=== PATIENT | male | born 1985 ===

== ENCOUNTER 2021-06-23 01:57 | Emergency (ER) | payer OTHER ==
--- OUTSIDE RECORDS SUMMARY | 2021-06-23 02:01 | XMS REPORT | Continuity of Care Document ---
:1985 Author Organization [facility] t Address [address] [place] [address] Dr. [address]. [address] [place] [address] Care Team Providers Name Role Phone Haylie YBARRA, Geovani Primary Care Physician Geovani Stallings MD Attending Clinician GEOVANI STALLINGS Attending Clinician Unavailable Doctor Unassigned, Name Attending Clinician Unavailable Payers Payer Name Policy Type Policy Number Effective Date Expiration Date Melanie MUSTAFA PPO I [id number] 2017 00:00:00 Problems Condition Condition Condition Status Onset Resolution Last Treating Co mments Source Name Details Category Date Date Treatment Clinician Date No known No known Disease Unive rs active active ity of problems problems [facility] Allergies, Adverse Reactions, Alerts Allergy Allergy Status Severity Reaction(s) Onset Inactive Treating Comm ents Source Name Type Date Date Clinician NO KNOWN Drug Active Univers ALLERGIE Class ity of S [facility] Social History Social Habit Start Date Stop Date Quantity Comments Source Exposure to Not sure [facility] SARS-CoV-2 (event) Medica l Branch Alcohol intake 2020-11-04 2020-11-04 .86 /d [facility] 00:00:00 00:00:00 [facility] Tobacco use and 2019-03-26 2019-03-26 Never used [facility] exposure 00:00:00 00:00:00 [facility] Sex Ass[birth year] At [birth year] [facility] 00:00:00 00:00:00 [facility] Smoking Status Start Date Stop Date Source Never smoker [facility] Medications Ordered Filled Start Stop Current Ordering Indication Dosage Frequency Signature Comments Components Source Medication Medication Date Date Medication? Clinician (SIG) Name Name methylPREDN 2020-06 Yes [id number] Take by Univers ISolone 0-08 mouth ity of (MEDROL, 00:00: SEE-INSTRU Andrew as DEDRA,) 4 mg 00 CTIONS. Medica l tablets follow Branch package directions methylPREDN 2020-06 Yes [id number] Take by Univers ISolone 0-08 mouth ity of (MEDROL, 00:00: SEE-INSTRU Andrew as DEDRA,) 4 mg 00 CTIONS. Medica l tablets follow Branch package directions Vital Signs Vital Name Observation Time Observation Value Comments Source Systolic blood 2021-03-27 20:53:00 128 mm[Hg] Univer sity [facility] Diastolic blood 2021-03-27 20:53:00 81 [facility]Hg[facility] 2021-03-27 20:53:00 61 /min [facility] Body height 2021-03-27 20:53:00 180.3 cm [facility] Body weight 2021-03-27 20:53:00 82.101 kg [facility] BMI 2021-03-27 20:53:00 25.24 kg/m2 [facility] Oxygen saturation 2021-03-27 20:53:00 100 /min [facility] in Arterial blood Medical Br anch by Pulse oximetry Procedures Procedure Date / Time Performing Clinician Source Performed [facility] STATEMENT OF PATIENT 2021-03-27 05:01:00 Doctor Unassigned, [facility] FINANCIAL RESPONSIBILITY [place] Branch Encounters Start End Encounter Admission Attending Care Care Encounter Source Date/Time Date/Time Type Type Clinicians Facility Department ID 2021-03-27 2021-03-27 Office Haylie [facility] [id number] Univers 15:48:58 16:03:58 Visit [facility] [id number] it y of Geovani Messina [id number] Andrew as Samson?Blea [id number] Nh darrell garcia [address] [place] [address] Medical Office Building 2021-03-27 2021-03-27 Outpatient R HAYLIE [facility] [id number] Univers 16:00:00 16:00:00 LETICIA [id number] [facility] 2021-03-27 2021-03-27 [facility] [id number] Univers 16:00:00 16:00:00 LETICIA [facility] 2021-03-27 2021-03-27 Orders Doctor GARRY [id number] Univers 00:00:00 00:00:00 Only Unassigned, MARITZA [id number] ity [facility] [id number] Andrew as [id number] [address] 2020-11-04 2020-11-04 [facility] [id number] [id number] Univers 14:30:00 14:30:00 LETICIA [id number] [facility] 2020-11-04 2020-11-04 Outpatient Adrianna STALLINGS [facility] [id number] Univers 14:30:00 14:30:00 LETICIA [facility] 2020-01-31 2020-01-31 Outpatient Adrianna STALLINGS [facility] [id number] [id number] Univers 14:30:00 14:30:00 LETICIA [id number] [facility] 2020-01-31 2020-01-31 [facility] [id number] Univers 14:30:00 14:30:00 LETICIA [facility] 2020-01-11 2020-01-11 [facility] [id number] [id number] Univers 13:15:00 13:15:00 LETICIA [id number] [facility] Results This patient has no known results.
[2021-06-23 02:53] LABS: Absolute Lymphocytes (CBC) 1.8 K/uL (0.7-4.9); Lymphocytes % 34.8 % (15.3-44.8); MPV 8.5 fL (7.6-11.3); Protime INR 0.93; RBC Red Blood Cell Count 5.31 M/uL (4.33-5.43)
[2021-06-23 03:06] LABS: ALT/SGPT 27 U/L (12-78); AST/SGOT 15 U/L (15-37); Albumin 3.8 g/dL (3.4-5.0); Alkaline Phosphatase 73 U/L (45-117); BUN Blood Urea Nitrogen 15 mg/dL (7-18); Bicarbonate 28 mmol/L (21-32); Bilirubin Direct < 0.1 mg/dL (0-0.2); Bilirubin Total 0.3 mg/dL (0.2-1.0); Glucose Level 108 mg/dL (74-106); Magnesium 2.3 mg/dL (1.8-2.4); NT PRO-BNP 16 pg/mL (<125); Potassium 3.5 mmol/L (3.5-5.1); Protein, Total 7.5 g/dL (6.4-8.2); Sodium Level 139 mmol/L (136-145); Troponin (Emerg Dept Use Only) < 0.02 ng/mL (0.0-0.045)
[2021-06-23 04:46] LABS: Barbiturates NEGATIVE (NEGATIVE); Benzodiazepines NEGATIVE (NEGATIVE); Cocaine NEGATIVE (NEGATIVE); METHAMPHETAM NEGATIVE (NEGATIVE); Methadone NEGATIVE (NEGATIVE); Opiates NEGATIVE (NEGATIVE); Phencyclidine NEGATIVE (NEGATIVE); THC Cannibis NEGATIVE (NEGATIVE)
--- NOTE | 2021-06-23 05:00 | ER ---
Nurse's Notes [facility] Name: Antonio Edwards Age: 35 yrs Sex: Male : 1985 Arrival Date: 06/23/2021 Time: 02:07 Bed Treatment Private MD: Diagnosis: Chest pain. Hypertension Presentation: 06/23 02:09 Chief complaint: Patient states: pt woke up around 0045 with left sided chest pain as6 radiating down left arm. Coronavirus screen: At this time, the client does not indicate any symptoms associated with coronavirus-19. Ebola Screen: No symptoms or risks identified at this time. Initial Sepsis Screen: Does the patient meet any 2 criteria? No. Patient's initial sepsis screen is negative. Does the patient have a suspected source of infection? No. Patient's initial sepsis screen is negative. Risk Assessment: Do you want to hurt yourself or someone else? Patient reports no desire to harm self or others. Onset of symptoms was June 23, 2021. 02:09 Method Of Arrival: Ambulatory as6 02:09 Acuity: AMALIA 3 as6 Historical: - Allergies: 02:13 No Known Allergies; as6 - Home Meds: 02:13 None [Active]; as6 - PMHx: 02:13 None; as6 - PSHx: 02:13 None; as6 - Immunization history:: Client reports having NOT received the Covid vaccine. - Social history:: Smoking status: Patient denies any tobacco usage or history of. Patient uses alcohol, occasionally. Screenin:59 Abuse screen: Denies threats or abuse. Nutritional screening: No deficits noted. al4 Tuberculosis screening: No symptoms or risk factors identified. Fall Risk No fall in past 12 months (0 pts). IV access (20 points). Ambulatory Aid- None/Bed Rest/Nurse Assist (0 pts). Gait- Normal/Bed Rest/Wheelchair (0 pts) Mental Status- Oriented to own ability (0 pts). Total Neil Fall Scale indicates No Risk (0-24 pts). Assessment: 03:50 Reassessment: patient is alert and oriented. patient is resting comfortably at this al4 time. redrawing labs and doing a repeat EKG. 04:57 General: Appears in no apparent distress. comfortable, Behavior is calm, cooperative, al4 appropriate for age. Pain: Complains of pain in chest Pain radiates to left arm Pain began suddenly. Neuro: Level of Consciousness is awake, alert, obeys commands, Oriented to person, place, time. Cardiovascular: Heart tones present Capillary refill < 3 seconds Patient's skin is warm and dry. Respiratory: Airway is patent Respiratory effort is even, unlabored, Respiratory pattern is regular, symmetrical. GI: No signs and/or symptoms were reported involving the gastrointestinal system. : No signs and/or symptoms were reported regarding the genitourinary system. EENT: No signs and/or symptoms were reported regarding the EENT system. Derm: No signs and/or symptoms reported regarding the dermatologic system. Musculoskeletal: No signs and/or symptoms reported regarding the musculoskeletal system. Vital Signs: 02:09 BP 154 / 107; Pulse 75; Resp 18 S; Temp 97.2(TE); Pulse Ox 100% on R/A; Weight 79.38 kg as6 (R); Height 5 ft. 11 in. (180.34 cm) (R); Pain 6/10; 04:49 BP 139 / 85; Pulse 85; Resp 20; Temp 98.1; Pulse Ox 95% on R/A; mw2 02:09 Body Mass Index 24.41 (79.38 kg, 180.34 cm) as6 ED Course: 02:07 Patient arrived in ED. ag3 02:13 Triage completed. as6 02:13 Arm band placed on. as6 02:18 EKG completed in triage. Results shown to MD. as6 02:26 Inserted saline lock: 18 gauge in right antecubital area, using aseptic technique. as6 Blood collected. 02:45 XRAY Chest (1 view) In Process Unspecified. EDMS 03:41 Arnulfo Qiu MD is Attending Physician. pkl 04:08 Aldo Bae is Primary Nurse. al4 04:58 Michael Nava MD is Referral Physician. pkl 04:59 Patient has correct armband on for positive identification. Pulse ox on. NIBP on. Door al4 closed. Lights dimmed. 04:59 Patient maintains SpO2 saturation greater than 95% on room air. al4 05:09 No provider procedures requiring assistance completed. IV discontinued, intact, as6 bleeding controlled, No redness/swelling at site. Pressure dressing applied. Administered Medications: No medications were administered Outcome: 04:59 Discharge ordered by . peg 05:10 Discharged to home ambulatory, with family. as6 05:10 Condition: stable 05:10 Discharge instructions given to patient, Instructed on discharge instructions, follow up and referral plans. medication usage, Demonstrated understanding of instructions, follow-up care, medications, Prescriptions given X 1. 05:11 Patient left the ED. as6 Signatures: Dispatcher [employer] EDMS Arnulfo Qiu MD MD pkl RyanStacyPatelkavitha mw2 Henna Leiva 3 Mary Mtz tw5 Robson Winters, INDER RN as6 Aldo Bae al4 Corrections: (The following items were deleted from the chart) 04:51 04:49 General: Appears in no apparent distress. comfortable, Behavior is calm, tw5 cooperative, appropriate for age, Reports chest discomfort that woke him up this morning around 12am. patient states he got dizzy and started sweating. tw5 04:51 04:49 Neuro: Level of Consciousness is awake, alert, obeys commands, Oriented to tw5 person, place, time, situation, tw5 04:51 04:49 Respiratory: Airway is patent Respiratory effort is even, unlabored, Respiratory tw5 pattern is regular, symmetrical, tw5 04:51 04:49 GI: No signs and/or symptoms were reported involving the gastrointestinal system. tw5 tw5 04:51 04:49 : No signs and/or symptoms were reported regarding the genitourinary system. tw5tw5 04:51 04:49 Derm: No signs and/or symptoms reported regarding the dermatologic system. tw5 tw5 04:51 04:49 EENT: No signs and/or symptoms were reported regarding the EENT system. tw5 tw5 04:51 04:49 Musculoskeletal: No signs and/or symptoms reported regarding the musculoskeletal tw5 system. tw5 04:55 04:53 General: patient is alert and oriented. patient is resting comfortably at this al4 time. mother at bedside. . al4
--- NOTE | 2021-06-23 05:00 | EDPHYS ---
Physician Documentation [facility] Name: Antonio Edwards Age: 35 yrs Sex: Male : 1985 Arrival Date: 06/23/2021 Time: 02:07 Bed Treatment Private MD: ED Physician Arnulfo Qiu HPI: 06/23 04:29 This 35 yrs old Male presents to ER via Ambulatory with complaints of Chest Pain, Arm pkl Pain. 04:29 The patient or guardian reports chest pain that is located primarily in the substernal pkl area. The pain radiates to the left arm. Associated signs and symptoms: The patient has no apparent associated signs or symptoms. The chest pain is described as a pressure. The patient has experienced similar episodes in the past, a few times. Historical: - Allergies: 02:13 No Known Allergies; as6 - Home Meds: 02:13 None [Active]; as6 - PMHx: 02:13 None; as6 - PSHx: 02:13 None; as6 - Immunization history:: Client reports having NOT received the Covid vaccine. - Social history:: Smoking status: Patient denies any tobacco usage or history of. Patient uses alcohol, occasionally. ROS: 04:29 Eyes: Negative for injury, pain, redness, and discharge, ENT: Negative for injury, pkl pain, and discharge, Neck: Negative for injury, pain, and swelling. 04:29 Cardiovascular: Positive for chest pain. 04:29 Respiratory: Negative for cough, shortness of breath. 04:29 Abdomen/GI: Negative for abdominal pain, nausea, vomiting, and diarrhea. 04:29 Back: Negative for acute changes. 04:29 : Negative for urinary symptoms. 04:29 MS/extremity: Negative for acute changes. 04:29 Skin: Negative for rash. 04:29 Neuro: Negative for altered mental status, loss of consciousness. Exam: 04:29 Head/Face: Normocephalic, atraumatic. Eyes: Pupils equal round and reactive to light, pkl extra-ocular motions intact. Lids and lashes normal. Conjunctiva and sclera are non-icteric and not injected. Cornea within normal limits. Periorbital areas with no swelling, redness, or edema. ENT: Nares patent. No nasal discharge, no septal abnormalities noted. Tympanic membranes are normal and external auditory canals are clear. Oropharynx with no redness, swelling, or masses, exudates, or evidence of obstruction, uvula midline. Mucous membranes moist. Neck: Trachea midline, no thyromegaly or masses palpated, and no cervical lymphadenopathy. Supple, full range of motion without nuchal rigidity, or vertebral point tenderness. No Meningismus. Chest/axilla: Normal chest wall appearance and motion. Nontender with no deformity. No lesions are appreciated. Cardiovascular: Regular rate and rhythm with a normal S1 and S2. No gallops, murmurs, or rubs. Normal PMI, no JVD. No pulse deficits. Respiratory: Lungs have equal breath sounds bilaterally, clear to auscultation and percussion. No rales, rhonchi or wheezes noted. No increased work of breathing, no retractions or nasal flaring. Abdomen/GI: Soft, non-tender, with normal bowel sounds. No distension or tympany. No guarding or rebound. No evidence of tenderness throughout. Back: No spinal tenderness. No costovertebral tenderness. Full range of motion. Skin: Warm, dry with normal turgor. Normal color with no rashes, no lesions, and no evidence of cellulitis. MS/ Extremity: Pulses equal, no cyanosis. Neurovascular intact. Full, normal range of motion. Neuro: Awake and alert, GCS 15, oriented to person, place, time, and situation. Cranial nerves II-XII grossly intact. Motor strength 5/5 in all extremities. Sensory grossly intact. Cerebellar exam normal. Normal gait. Vital Signs: 02:09 BP 154 / 107; Pulse 75; Resp 18 S; Temp 97.2(TE); Pulse Ox 100% on R/A; Weight 79.38 kg as6 (R); Height 5 ft. 11 in. (180.34 cm) (R); Pain 6/10; 04:49 BP 139 / 85; Pulse 85; Resp 20; Temp 98.1; Pulse Ox 95% on R/A; mw2 02:09 Body Mass Index 24.41 (79.38 kg, 180.34 cm) as6 MDM: 03:41 Patient medically screened. pkl 04:55 Data reviewed: vital signs, nurses notes, lab test result(s), EKG, radiologic studies, pkl plain films. ED course: Patient feeling better. Discussed lab, EKG and imaging studies with patient. Advised to follow up with Motor Vehicle Or Caravan Salesperson ( Dr. Nava ) in 2 to 3 days for further evaluations. To return if necessary, Patient understood instructions. 06/23 02:16 Order name: Basic Metabolic Panel lp1 06/23 02:16 Order name: CBC with Diff; Complete Time: 03:43 lp1 06/23 02:16 Order name: LFT's; Complete Time: 03:43 lp1 06/23 02:16 Order name: Magnesium; Complete Time: 03:43 lp1 06/23 02:16 Order name: NT PRO-BNP; Complete Time: 03:43 lp1 06/23 02:16 Order name: PT-INR; Complete Time: 04:47 lp1 06/23 02:16 Order name: Troponin (emerg Dept Use Only); Complete Time: 03:43 lp1 06/23 02:16 Order name: XRAY Chest (1 view) lp06/23 02:16 Order name: EKG; Complete Time: 02:16 lp1 06/23 02:16 Order name: Basic Metabolic Panel; Complete Time: 03:43 EDMS 06/23 03:49 Order name: Troponin (emerg Dept Use Only); Complete Time: 05:00 pkl 06/23 03:49 Order name: UDS; Complete Time: 04:47 pkl 06/23 04:03 Order name: D-Dimer; Complete Time: 04:47 EDMS 06/23 02:16 Order name: Cardiac monitoring; Complete Time: 03:45 lp1 06/23 02:16 Order name: EKG - Nurse/Tech; Complete Time: 02:18 lp1 06/23 02:16 Order name: IV Saline Lock; Complete Time: 02:25 lp1 06/23 02:16 Order name: Labs collected and sent; Complete Time: 02:25 lp1 06/23 02:16 Order name: O2 Per Protocol; Complete Time: 03:44 lp1 06/23 02:16 Order name: O2 Sat Monitoring; Complete Time: 03:44 lp1 06/23 03:49 Order name: EKG; Complete Time: 03:50 pkl Administered Medications: No medications were administered Disposition Summary: 06/23/21 04:59 Discharge Ordered Location: Home pkl Problem: new pkl Symptoms: have improved pkl Condition: Stable pkl Diagnosis - Chest pain. Hypertension pkl Followup: pkl - With: Michael Nava MD - When: 2 - 3 days - Reason: Re-evaluation by your physician Discharge Instructions: - Discharge Summary Sheet pkl Forms: - Medication Reconciliation Form pkl - Thank You Letter pkl - Antibiotic Education pkl - Prescription Opioid Use pkl Prescriptions: - Carvedilol 6.25 mg Oral Tablet - take 1 tablet by ORAL route 2 times per day with food; 60 tablet; Refills: 0, pkl Product Selection Permitted Signatures: Dispatcher [employer] EDMS Arnulfo Qiu MD MD pkl Casandra Lassiter RN RN lp1 Robson Winters RN RN as6 Corrections: (The following items were deleted from the chart) 04:03 03:50 D-DIMER+COAG.LAB.BRZ ordered. EDMS EDMS
[2021-06-23 05:22] VITALS: BP 139/85; TEMP 98.1; O2SAT 95
--- NOTE | 2021-06-23 08:12 | RAD REPORT ---
EXAM DESCRIPTION: [place] Single View06/23/2021 2:46 am CLINICAL HISTORY: Chest pain COMPARISON: none FINDINGS: The lungs appear clear of acute infiltrate. The heart is normal size IMPRESSION: No acute abnormalities displayed
--- NOTE | 2021-06-23 11:15 | EKG ---
Test Date: 2021-06-23 Test Time: 02:18:55 Gaming Associate: MEASUREMENT RESULTS: Intervals: Rate: 77 NM: 178 QRSD: 102 QT: 378 QTc: 427 [place]: P: 56 NM: 178 QRS: 74 T: 64 INTERPRETIVE STATEMENTS: Normal sinus rhythm Normal ECG No previous ECG available for comparison Electronically Signed On 06-23-21 11:14:03 HELP DESK SUPPORT SPECIALIST by Michael Nava
--- NOTE | 2021-06-23 11:15 | EKG ---
Test Date: 2021-06-23 Test Time: 04:16:23 Senior Cost Accountant: ALL MEASUREMENT RESULTS: Intervals: Rate: 58 AK: 170 QRSD: 110 QT: 402 QTc: 394 [place]: P: 46 AK: 170 QRS: 80 T: 76 INTERPRETIVE STATEMENTS: Sinus bradycardia Otherwise normal ECG No previous ECG available for comparison Electronically Signed On 06-23-21 11:14:02 [employer] TECHNOLOGY DEVELOPMENT MANAGER by Michael Nava
== END 2021-06-23 05:11 | disposition home or self-care (01) ==
LOC: ER 01:57
DX: I10 Essential (primary) hypertension (principal)
CPT/HCPCS: 36415; 71045; 80048; 80076; 80307; 83735; 83880; 84484; 85025; 85379; 85610; 93005; 99284